=== PATIENT | female | born 1980 | race Caucasian/White ===

== ENCOUNTER → 2023-05-10 | Outpatient (CLI) | payer BC, SELFPAY ==
--- NOTE | 2023-05-09 | ASPSI_PTH ---
PATIENT: RENITA BASS LOC: [facility] U#:[id number] AGE/SX: 42/F ROOM: RE05/10/[address]: Dr. Hubert Nicholas MD : 1980 BED: DIS: 05/10/2023 SPEC #: [id number] RECD: 05/10/23 12:10 STATUS: SANJUANA INNA #: [id number] MARCELINO: 05/09/23 00:[address]: Hubert Nicholas DEPT: CYTOLOGY RECD BY: Timothy Davis Tissues: A - Thyroid gland, NOS B - Thyroid gland, NOS Procedures: Surgery Specimen Level IV Cytospin Fluid Cytology Other HEADER OPERATION: Fine needle aspiration, left thyroid PRE-OP DIAGNOSIS: Abnormal thyroid ultrasound TISSUE SUBMITTED: A - Left thyroid fluid, B - Left thyroid x12 slides DIAGNOSIS CYTOLOGY A. Left thyroid fluid, fine needle aspiration (cytospin and cell block): Consistent with benign follicular/colloid nodule with cystic changes, [place] Category II. Adequate for evaluation. See comment. B. Left thyroid, fine needle aspiration (smears): Consistent with benign follicular/colloid nodule with cystic changes, [place] Category II. Adequate for evaluation. See comment. KENDELL:maritza 05/11/2023 COMMENT A & B. Correlation with clinical, radiologic findings and appropriate follow up are necessary. The [place] System for thyroid diagnostic categorization was used in the evaluation of this case. CYTOLOGY STUDY Slides are reviewed. CYTOLOGY GROSS A - Received is 15 ml of brown cloudy fluid labeled with the patient's name and and designated per the requisition as left thyroid. Submitted for cytology preparation including cell block. B - Received are 12 smears labeled with the patient's name and designated per the requisition as left thyroid. Submitted for staining. / maritza 05/10/2023 TC:5 CPT: 49550, 57093 x2
== END | disposition home or self-care (01) ==
PROVIDERS: Referring Provider Surgery; Visit Provider Surgery
DX: R94.6 Abnormal results of thyroid function studies (principal)
CPT/HCPCS: 88108; 88161; 88305

== ENCOUNTER → 2025-01-16 | Outpatient (CLI) | payer BC, SELFPAY ==
--- NOTE | 2025-01-16 07:23 | CT_ITS ---
PROCEDURE: SOFT TISSUE NECK WITH CONTRAST 01/16/2025 REASON FOR EXAM: ACUTE RECURRENT SIALOADENITIS TECHNIQUE: CT of the soft tissues of the neck from the orbits to the upper mediastinum with intravenous contrast. CONTRAST: Isovue-300 VOLUME: 100 mL One or more dose reduction techniques were used (e.g., Automated exposure control, adjustment of the mA and/or kV according to patient size, use of iterative reconstruction technique). RADIATION DOSE SUMMARY: CTDlvol: 11.08 mGy DLP: 298.91 mGycm COMPARISON: None FINDINGS: Airway: Midline and patent. Salivary glands: Unremarkable. Lymph nodes: No cervical lymphadenopathy. Thyroid: There has been resection of the left lobe of the thyroid gland. Heterogeneous enlargement of the right lobe of the thyroid suggestive of goiter is enlargement. Vasculature: Carotid arteries and internal jugular veins are unremarkable. Orbits: Unremarkable at visualized levels. Paranasal sinuses and mastoids: Grossly clear at visualized levels. Lung apices: Clear. Upper mediastinum: Visualized mediastinum is unremarkable. Bones: Unremarkable. Other: CT/Soft Tissue Neck WITH Contrast IMPRESSION: Status post resection of the left lobe of the thyroid gland with heterogeneous enlargement of the right lobe of the thyroid suggestive of goiter is changes. Reading Location: [place] [id number]
== END | disposition home or self-care (01) ==
PROVIDERS: PCP Internal Medicine; Referring Provider Otolaryngology; Visit Provider Otolaryngology
DX: K11.22 Acute recurrent sialoadenitis (principal)
CPT/HCPCS: 70491; Q9967